=== PATIENT | female | born 1995 | race Caucasian/White ===

== ENCOUNTER 2019-06-29 12:09 | Emergency (ER) | payer OTHER, SELFPAY ==
[2019-06-29 13:19] VITALS: BP 142/96; PULSE 96; RESP 14; TEMP 37.1; O2SAT 100
[2019-06-29] MEDS: LACTATED RINGERS 1,000 ML 999 ML IV CONT (13:48)
[2019-06-29 14:07] LABS: Basophils Percent Auto 0.4 % (0.2-1.2); Eosinophils Absolute Auto 0.1 K/mm3 (0-0.3); Eosinophils Percent Auto 1.1 % (0-4.4); Hemoglobin 13.1 g/dL (12.0-15.0); Immature Granulocyte Absolute 0.01 K/mm3 (0.00-0.031); Immature Granulocyte Percent A 0.2 % (0-0.5); Lymphocytes Absolute Auto 1.82 K/mm3 (0.9-3.2); Lymphocytes Percent Auto 33.2 % (18.3-44.2); Mean Corpuscular HGB Conc 32.8 g/dl (32-36); Mean Corpuscular Hemoglobin 30.2 pg (26-34); Mean Corpuscular Volume 92.2 fl (80-100); Mean Platelet Volume 12.8 fl (7.4-10.4); Monocytes Absolute Auto 0.6 K/mm3 (0.1-0.6); Monocytes Percent Auto 10.7 % (2.6-8.5); Neutrophils Percent Auto 54.4 % (45.5-73.1); Platelet Count Result 130 k/mm3 (150-375); Red Blood Count 4.34 M/mm3 (4.2-5.4); Red Cell Distribution Width 12.7 % (11.5-14.5); White Blood Count 5.5 K/mm3 (4.5-10.0)
[2019-06-29 14:11] LABS: Add Urine Microscopic? YES; Appearance Urine Cloudy (Clear); Bacteria Urine Trace /hpf; Bilirubin Urine Negative (Negative); Blood Urine Negative (Negative); Color Urine Yellow (Yellow); Glucose Urine UA Negative (Negative); Ketones Urine Negative (Negative); Leukocyte Esterase Ur Trace LEU/UL (Negative); Mucus Urine Few /lpf; Nitrate Urine Negative (Negative); Protein Urine Negative (Negative); RBC Urine 0-2 /hpf (0-2); Specific Grav Ur 1.023 (1.001-1.035); Squamous Epithelial Cell Urine Many /hpf (Few); Urobilinogen Urine Negative mg/dL (<2.0)
[2019-06-29 14:20] LABS: Alanine Aminotransferase 22 U/L (4-35); Albumin Level 4.5 g/dL (3.5-5.1); Alkaline Phosphatase 67 U/L (38-126); Aspartate Amino Transferase 23 U/L (14-36); Bilirubin,Total 0.4 mg/dL (0.2-1.3); Blood Urea Nitrogen 11 mg/dL (7-17); Calcium 9.3 mg/dL (8.4-10.2); Carbon Dioxide 26 mmol/L (22-30); Chloride 101 mmol/L (98-107); Estimated CRCL calculation 157 ml/min; Estimated Glomerular Filt Rate > 60; Glucose 87 mg/dL (65-105); Lipase 66 U/L (23-300); Potassium 3.6 mmol/L (3.4-5.0); Sodium 137 mmol/L (137-145)
--- NOTE | 2019-06-29 14:30 | ED.NAVMDI ---
HPI - Nausea/Vomiting/Diarrhea General Chief complaint: Nausea/Vomiting/Diarrhea Stated complaint: cough, n/v/d Time Seen by Provider: 06/29/19 12:43 History of Present Illness HPI Narrative: Patient is a 24-year-old female who presents to emergency department noting that she has had some intermittent vomiting diarrhea over the course of the last week patient notes some mild discomfort in the lower abdomen also has been having some congestion rhinorrhea and productive cough patient has not taken anything for her symptoms patient is able to tolerate p.o. intake without emesis but at times becomes more nauseous on arrival patient in the room in no distress and notes she has not been seen for this complaint Related Data Allergies Allergy/AdvReac Type Severity Reaction Status Date / Time amoxicillin Allergy Intermediate Rash Verified 02/28/19 10:12 latex Allergy Unknown Unknown Verified 06/29/19 13:33 Penicillins Allergy Unknown Unknown Verified 06/29/19 13:22 Review of Systems Review of Systems: Narrative: CONSTITUTIONAL: Denies fever, chills, or sweats. EYES: Denies visual changes, redness, or discharge. ENT: Positive for rhinorrhea, congestion, sore throat, or otalgia. CARDIOVASCULAR: Denies chest pain, or edema. RESPIRATORY: Denies dyspnea. GENITOURINARY: Denies dysuria or hematuria. SKIN: Denies rash or itching. MUSCULOSKELETAL: Denies back pain, joint pain, or myalgia. NEUROLOGIC: Denies headache, dizziness, or weakness. [facility] Social History Social History (Updated 06/29/19 @ 14:35 by Jarred Contreras PA-C) Smoking status: Current every day smoker Exam Narrative: Exam Narrative: GENERAL: Well-appearing, well-nourished, and in no acute distress. HEAD: Normocephalic, atraumatic. EYES: PERRLA and EOMI. ENT: Nares clear, no rhinorrhea or epistaxis. Mucous membranes moist. Oropharynx without tonsillar hypertrophy exudate or other lesions. Bilateral TMs pearly house nonbulging NECK: Supple. No adenopathy or masses. CHEST: Clear to auscultation. No respiratory distress. No wheezes rales or rhonchi HEART: Regular rate and rhythm. No murmur heard. Normal peripheral pulses. ABDOMEN: Soft, tenderness in the lower quadrants, nondistended EXTREMITIES: Normal range of motion. No edema. SKIN: Warm, dry, no rash. NEURO: No focal deficits. Alert and oriented x3. PSYCH: Normal mood and affect. Course Course Emergency Course: Patient in the room at this time in no distress resting comfortably Vital Signs Vital signs: Vital Signs Temperature 98.8 F 06/29/19 13:19 Pulse Rate 96 06/29/19 13:19 Respiratory Rate 14 06/29/19 13:19 Blood Pressure 142/96 H 06/29/19 13:19 Pulse Oximetry 100 06/29/19 13:19 Temperature 98.8 F 06/29/19 13:19 Pulse Rate 96 06/29/19 13:19 Respiratory Rate 14 06/29/19 13:19 Blood Pressure 142/96 H 06/29/19 13:19 Pulse Oximetry 100 06/29/19 13:19 MDM - Nausea/Vomiting/Diarrhea MDM Narrative Medical decision making narrative: Patient in the room in no distress no high risk changes in the blood work or imaging will be referred to primary care with likely viral syndrome provided with reasons to return Lab Data Result diagrams: 06/29/19 13:57 06/29/19 13:57 Labs: Lab Results 06/29/19 06/29/19 06/29/19 Range/Units 13:57 13:57 13:57 WBC 5.5 (4.5-10.0) K/mm3 RBC 4.34 (4.2-5.4) M/mm3 Hgb 13.1 (12.0-15.0) g/dL Hct 40.0 (37.0-47.0) % MCV 92.2 (80-100) fl MCH 30.2 (26-34) pg MCHC 32.8 (32-36) g/dl RDW 12.7 (11.5-14.5) % Plt Count 130 L (150-375) k/mm3 MPV 12.8 H (7.4-10.4) fl Immature Gran % (Auto) 0.2 (0-0.5) % Neut % (Auto) 54.4 (45.5-73.1) % Lymph % (Auto) 33.2 (18.3-44.2) % Lee % (Auto) 10.7 H (2.6-8.5) % Eos % (Auto) 1.1 (0-4.4) % Baso % (Auto) 0.4 (0.2-1.2) % Lymph # (Auto) 1.82 (0.9-3.2) K/mm3 Lee # (Auto) 0.6 (0.1-0.6) K/mm3 Eos # (Auto)
[2019-06-29 15:08] VITALS: BP 126/87; PULSE 63; RESP 14; O2SAT 96
--- NOTE | 2019-07-06 08:16 | PC.NURSE ---
LATE ENTRY This note is being entered to document information to the patient's record. The following information was omitted on [06/29/2019], by [Blayne Jennings]. LR infused completed at 1448.
== END 2019-06-29 15:10 | disposition home or self-care (01) ==
PROVIDERS: Emergency Medicine Emergency Medical Services; Emergency Provider Emergency Medicine
DX: J06.9 Acute upper respiratory infection, unspecified (principal); R10.30 Lower abdominal pain, unspecified
CPT/HCPCS: 36415; 80053; 81001; 83690; 85025; 96360; 99283; J7120

== ENCOUNTER 2020-06-07 11:18 | Emergency (ER) | payer OTHER, SELFPAY ==
[2020-06-07 11:29] VITALS: BP 135/91; PULSE 110; RESP 16; O2SAT 100
--- NOTE | 2020-06-07 12:25 | PC.NURSE ---
Patient reports that she began having diarrhea yesterday with 3 BM since last night with stool that is soft and liquid. 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 She called her PMD (Tello) today and was told to come to the hospital and to be tested for COVID. Her only complaint in addition to the above complaint is a sore throat which began today.
--- NOTE | 2020-06-07 12:37 | ED.GENADULT ---
HPI - General Adult General Chief complaint: Unspecified Stated complaint: SORE THROAT AND DIARRHEA Time Seen by Provider: 06/07/20 12:24 Source: patient Mode of arrival: ambulatory Limitations: no limitations History of Present Illness HPI narrative: Patient is a 25-year-old female who presents with sore throat and diarrhea x1 day. Patient was more explained to PCP and was sent to ED for Covid testing. Patient denies fever. She denies any known exposure to Covid, however works in a gas station. She denies all other complaints at this time. MD complaint: Sore throat, diarrhea Related Data Home Medications Medication Instructions Recorded Confirmed cetirizine mg 06/07/20 cyclobenzaprine mg 06/07/20 drospirenone (contraceptive) 06/07/20 [Slynd] fluoxetine mg 06/07/20 multivitamin with folic acid tablet PO 06/07/20 [Tab-A-Ale] omeprazole 06/07/20 oxcarbazepine 06/07/20 prazosin 06/07/20 trazodone 06/07/20 Allergies Allergy/AdvReac Type Severity Reaction Status Date / Time amoxicillin Allergy Intermediate Rash Verified 06/07/20 12:40 latex Allergy Unknown Unknown Verified 06/07/20 12:40 Penicillins Allergy Unknown Unknown Verified 06/07/20 12:40 Review of Systems Review of Systems: Narrative: CONSTITUTIONAL: Denies fever, chills, or sweats. EYES: Denies visual changes, redness, or discharge. ENT: Reports sore throat CARDIOVASCULAR: Denies chest pain, palpitations, or edema. RESPIRATORY: Denies cough or dyspnea. GASTROINTESTINAL: Denies abdominal pain, nausea or vomiting, reports diarrhea. GENITOURINARY: Denies dysuria or hematuria. SKIN: Denies rash or itching. MUSCULOSKELETAL: Denies back pain, joint pain, or myalgia. NEUROLOGIC: Denies headache, numbness, dizziness, or weakness. PSYCHIATRIC: Denies anxiety or depression. [facility] Past Medical History Medical History Anemia Anxiety Arthritis Back pain Bipolar disorder Depression GERD (gastroesophageal reflux disease) Heart murmur PTSD (post-traumatic stress disorder) Wears hearing aid in both ears Surgical History Surgical History H/O dilation and curettage H/O: Hx of tonsillectomy Family History Family History (Updated 06/07/20 @ 13:26 by GUERRERO White) Other No significant family history Social History Social History (Updated 06/07/20 @ 13:26 by GUERRERO White) Smoking status: Current every day smoker Tobacco type: cigarettes Alcohol intake: never Substance use: never Gender identity (if verbalized by the patient): Female Exam Narrative: Exam Narrative: GENERAL: Well-appearing, well-nourished, and in no acute distress. HEAD: Normocephalic, atraumatic. EYES:No redness or drainage. ENT: Mucous membranes pink and moist. Nares clear. No rhinorrhea. TMs normal bilaterally. Throat normal. Uvula midline. NECK: AROM. Supple. No lymphadenopathy. CHEST: No respiratory distress. HEART: Regular rate and rhythm. GI: Soft, nontender without rebound, or guarding. No distention. EXTREMITIES: Normal range of motion. SKIN: Warm, dry, no rash. NEURO: No focal deficits. Alert and oriented x3. Gait steady. PSYCH: Normal affect. No signs of depression or anxiety. Course Vital Signs Vital signs: Vital Signs Pulse Rate 110 H 06/07/20 11:29 Respiratory Rate 16 06/07/20 11:29 Blood Pressure 135/91 H 06/07/20 11:29 Pulse Oximetry 100 06/07/20 11:29 Pulse Rate 110 H 06/07/20 11:29 Respiratory Rate 16 06/07/20 11:29 Blood Pressure 135/91 H 06/07/20 11:29 Pulse Oximetry 100 06/07/20 11:29 Reviewed. Patient has been instructed to follow-up with her PCP regarding her blood pressure. Medical Decision Making MDM Narrative Medical decision making narrative: Patient's rapid strep and influenza are negative. Discussed Covid testing with patient. Shabana
[2020-06-07 13:18] LABS: Add Urine Microscopic? NO; Appearance Urine Clear (Clear); Bacteria Urine Trace /hpf; Bilirubin Urine Negative (Negative); Blood Urine Negative (Negative); Color Urine Straw (Yellow); Glucose Urine UA Negative (Negative); Ketones Urine Negative (Negative); Leukocyte Esterase Ur Negative LEU/UL (Negative); Mucus Urine Rare /lpf; Nitrate Urine Negative (Negative); Protein Urine Negative (Negative); RBC Urine 0-2 /hpf (0-2); Specific Grav Ur 1.014 (1.001-1.035); Squamous Epithelial Cell Urine Occasional /hpf (Few); Urobilinogen Urine Negative mg/dL (<2.0); WBC Urine 0-3 /hpf
[2020-06-07 13:43] VITALS: BP 143/97; PULSE 100; RESP 16; O2SAT 100
[2020-06-08 20:47] LABS: SARS-CoV-2 RNA PCR Negative
== END 2020-06-07 13:45 | disposition home or self-care (01) ==
PROVIDERS: Emergency Provider Nurse Practitioner; PCP Emergency Medicine
DX: J06.9 Acute upper respiratory infection, unspecified (principal); Z20.822 Contact with and (suspected) exposure to COVID-19; F41.9 Anxiety disorder, unspecified; M19.90 Unspecified osteoarthritis, unspecified site; F31.9 Bipolar disorder, unspecified; F43.10 Post-traumatic stress disorder, unspecified; Z86.2 Personal history of diseases of the blood and blood-forming organs and certain disorders involving the immune mechanism; F17.210 Nicotine dependence, cigarettes, uncomplicated
CPT/HCPCS: 81003; 81025; 87081; 87804; 87880; 99283; C9803; U0003

== ENCOUNTER 2023-09-07 09:42 | Outpatient (CLI) | payer OTHER, SELFPAY ==
[2023-09-07 10:19] LABS: Hematocrit 38.2 % (37.0-47.0); Hemoglobin 12.3 g/dL (12.0-15.0); Mean Corpuscular HGB Conc 32.2 g/dl (32-36); Mean Corpuscular Hemoglobin 29.9 pg (26-34); Mean Corpuscular Volume 92.7 fl (80-100); Mean Platelet Volume 12.5 fl (7.4-10.4); Platelet Count Result 131 k/mm3 (150-375); Red Blood Count 4.12 M/mm3 (4.2-5.4); Red Cell Distribution Width 13.1 % (11.5-14.5); White Blood Count 7.5 K/mm3 (4.5-10.0)
[2023-09-07 10:28] LABS: Alanine Aminotransferase 19 U/L (6-35); Albumin Level 4.1 g/dL (3.5-5.1); Alkaline Phosphatase 49 U/L (38-126); Anion Gap 5 mmol/L (4-12); Aspartate Amino Transferase 22 U/L (14-36); Bilirubin,Total 0.4 mg/dL (0.2-1.3); Blood Urea Nitrogen 8 mg/dL (7-17); Calcium 8.8 mg/dL (8.4-10.2); Carbon Dioxide 24 mmol/L (22-30); Chloride 109 mmol/L (98-107); Cholesterol 149 mg/dL (0-200); Estimated Glomerular Filt Rate > 60; Glucose 92 mg/dL (65-110); HDL Direct 37 mg/dL; Potassium 3.8 mmol/L (3.4-5.0); Sodium 138 mmol/L (137-145); Triglycerides 136 mg/dL (<150)
[2023-09-07 10:39] LABS: LDL Cholesterol Direct 89 mg/dL
[2023-09-07 10:57] LABS: Thyroid Stimulating Hormone 0.921 uIU/mL (0.465-4.680)
[2023-09-08 00:59] LABS: Hemoglobin A1C 4.7 % (<5.7)
== END 2023-09-07 09:43 | disposition home or self-care (01) ==
LOC: ANHLAB 09:44
PROVIDERS: PCP Nurse Practitioner; Visit Provider Nurse Practitioner
DX: Z00.00 Encounter for general adult medical examination without abnormal findings (principal); Z68.43 Body mass index [BMI] 50.0-59.9, adult; Z79.899 Other long term (current) drug therapy
CPT/HCPCS: 36415; 80053; 80061; 83036; 84443; 85027

== ENCOUNTER 2024-02-23 11:36 | Outpatient (CLI) | payer OTHER, SELFPAY ==
[2024-02-23 12:51] LABS: Alanine Aminotransferase 43 U/L (6-35); Albumin Level 4.5 g/dL (3.5-5.1); Alkaline Phosphatase 63 U/L (38-126); Anion Gap 11 mmol/L (4-12); Aspartate Amino Transferase 43 U/L (14-36); Bilirubin,Total 0.6 mg/dL (0.2-1.3); Blood Urea Nitrogen 8 mg/dL (7-17); Calcium 9.1 mg/dL (8.4-10.2); Carbon Dioxide 23 mmol/L (22-30); Chloride 103 mmol/L (98-107); Cholesterol 166 mg/dL (0-200); Estimated Glomerular Filt Rate > 60; Glucose 92 mg/dL (65-110); HDL Direct 38 mg/dL; Potassium 3.9 mmol/L (3.4-5.0); Sodium 137 mmol/L (137-145); Triglycerides 120 mg/dL (<150)
[2024-02-23 13:01] LABS: LDL Cholesterol Direct 95 mg/dL
[2024-02-23 13:29] LABS: Hemoglobin A1C 4.9 % (<5.7)
[2024-02-23 13:37] LABS: Vitamin D 25 Hydroxy 22.6 ng/mL
== END 2024-02-23 11:37 | disposition home or self-care (01) ==
LOC: ANHLAB 11:38
PROVIDERS: PCP Nurse Practitioner; Visit Provider Nurse Practitioner
DX: E55.9 Vitamin D deficiency, unspecified (principal); Z68.43 Body mass index [BMI] 50.0-59.9, adult; Z79.899 Other long term (current) drug therapy
CPT/HCPCS: 36415; 80053; 80061; 82306; 83036

== ENCOUNTER 2024-07-18 10:21 | Outpatient (CLI) | payer OTHER, SELFPAY ==
--- NOTE | ~2024-07-18 | US_ITS ---
US abdomen limited INDICATION: Right upper quadrant pain PROCEDURE: Realtime right upper abdominal ultrasound. COMPARISON: No prior studies for comparison. FINDINGS: The pancreas is normal without focal mass or pancreatic ductal dilation. Liver echotexture is normal without focal mass or intrahepatic biliary dilatation. There is normal directional flow i n the portal vein. There are gallstones. No gallbladder wall thickening, although the bladder is not well distended. Co mmon bile duct measures 4 mm. No sonographic Benito's sign. IMPRESSION: 1: Cholelithiasis. Reviewed, dictated and finalized at location B. EEPER IMPRESSION: 1: Cholelithiasis.
--- OUTSIDE RECORDS SUMMARY | 2024-07-18 11:16 | XMS_ITS | Data Portability ---
Author Organization [facility] [place] Address [address] [place] [address] Care Team Providers Care Embroidery Supervisor Name Role Phone LEANDROYOAV Primary Care Provider Assessment Encounter Date Assessment Date Assessment LastModified by Organization Details LastModified Time 01/03/2023 01/03/2023 Annual gynecological exam performed. Patient will come back in a year unless there are new symptoms. [email or web address] Not available 01/03/2023 14:57:09 Plan of Treatment Reminders Order Date Submit Date Provider Last Modified By Organization Details Last Modified Time Details Appointments None recorded. Lab hbcab (hepatitis B core Ab) igm, serum 2022 023 [facility] (Lab), [address], [place], [address], 3 01:27:29 HBsAg (hepatitis B surface Ag), serum 2022 023 [facility] (Lab), [address], [place], [address], 3 01:27:28 hepatitis C virus Ab, serum 2022 023 [facility] (Lab), [address] [place], [address], 3 01:27:27 unlisted lab - HIV 1/2 antigen/ant ibody, reflex confirmatio n 2022 023 [facility] (Lab), [address], [place], [address], 3 01:27:27 RPR (rapid plasma reagin), serum 2022 023 [facility] (Lab), [address] [facility], [place], [address], 3 01:27:28 Referral None recorded. Procedures None recorded. Surgeries None recorded. Imaging None recorded. Medication Orders None recorded. Patient TargetsNo targets recorded. Patient InstructionsNo instructions recorded. Reason for Referral None Reported. Results Created Date Observation Date Name Description Value Unit Range Abnormal Flag Note LastModifiedBy Organization Detail LastModifiedTime 01/04/20 23 01/03/2023 IMAGE GUIDE D PAP, REFLE X HPV IF ASCUS ONLY image guided Pap, reflex HPV ASCUS only SEE RESULT S BELOW CASE REPOR T: Cytol ogy Gynec ologi asmita Repor t Case: [id number] Autho brissa jackson Provi chuy: Sonia Sanon, SERGE Colle cted: 01/03 1513 Order ing Locat ion: [place] [facility] Recei eliza: 01/04 0905 First Scree n: Stacia Herrmann ret, CT Rescr een: Melba Ortega, CT Speci men: Scree blanco Pap - Image d, Cervi x STATE MENT OF ADEQU ACY: Satis facto ry for evalu ation Trans forma tion zone compo nent absen t The absen ce of an endoc ervic al compo nent was confi rmed by an addit ional scree ner. FINAL DIAGN OSIS: Negat ariel for Intra epith elial Lesio n or Malig valeriano (NIL) . Shift in daniela sugge stive of bacte rial vagin osis. Elect winsome rene billy d by Melba Ortega, CT on 023 at 9:27 AM ----- ----- ----- ----- ----- ----- ----- ----- ----- ----- ----- ----- ----- ----- ----- ----- ----- ---- COMME NT: This speci men was revie wed by a Cytot echno logis t and/o r Patho logis t (as indic ated in this repor t) after evalu ation using the Thinp rep Imagi ng Syste m. CLINI AMSITA INFOR MATIO N: Menst rual Statu s: LMP (if appli cable ): Clini asmita Histo ry/Pr eviou s Pap: Type of Neopl thang (if appli cable ): Signi fican t Clini asmita Findi ngs: Other Histo ry: Hormo alfredo (if appli cable ): PAP EDUCA SUSY L NOTE: The Pap Test is a scree blanco test with an inher ent false negat ariel rate. Liqui d-bas ed sampl ing may decre ase, but will not elimi blossom, false negat ariel resul ts. A negat ariel resul t does not precl ude the prese nce and/o r devel opmen t of disea se, since the prese nce of abnor mal cells in the sampl e depen ds on the locat ion of the lesio n and sampl ing techn ique. Marybeth nued regul ar scree blanco is the best metho d of cance r preve ntion . If repor zachary cytol ogic findi ng do not corre late with physi asmita and/o r histo rical findi ngs, furth er inves tigat ion is recom shannon d, as clini reba garnett nted. Not Available [facility] (Lab) [address], [place], [address], 01/05/2023 10:32:06 01/04/20 23 01/03/2023 TRICH OMONA S VAGIN DORI (RRNA ) trichomonas vaginalis ribosomal RNA (rrna) Negati ve negati ve Not Available [facility] (Lab) [address], [place], [address], 01/05/2023 10:32:06 01/04/20 23 01/03/2023 CT/GC (CHAN) , THINP REP VIAL chlamydia trachomatis, PCR Negati ve negati ve Not Available [facility] (Lab) [address] [facility], [place], [address], 01/05/2023 10:32:07 01/04/20 23 01/03/2023 CT/GC (CHAN) , THINP REP VIAL neisseria gonorrhoeae, PCR Negati ve negati ve Not Available [facility] (Lab) [address], [place], [address], 01/05/2023 10:32:07 01/04/20 23 01/03/2023 HEPAT ITIS C ANTIB MARK SCREE N, REFLE X TO CONFI RMATI ON hepatitis C antibody Non-re active non-re active Antib odies to HCV Not Detec zachary, does not exclu de the possi bilit y of expos ure to HCV. Not Available [facility] (Lab) [address], [place], [address], 01/06/2023 01:27:27 01/04/20 23 01/03/2023 HIV 1/2 ANTIG EN/AN TIBOD Y, REFLE X CONFI RMATI ON HIV antigen/anti body Nonrea ctive nonrea ctive HIV-1 antig en and HIV-1 /HIV- 2 antib odies were not detec zachary. No labor atory evide nce of HIV infec tion. Not Available [facility] (Lab) [address] [facility], [place], [address], 01/06/2023 01:27:27 01/04/2001/03/2023 HEPAT ITIS B SURFA CE ANTIG EN hepatitis B surface antigen Non-re active non-re active This assay was perfo rmed using [employer] ratio n reage nts and test kits. Value s obtai gurinder with other assay metho ds or kits canno t be used inter gu eably . Not Available [facility] (Lab) [address], [place], [address], 01/06/2023 01:27:28 01/04/20 23 01/03/2023 RPR SCREE N/REF OTILIA TITER /FTA RPR screen Nonrea ctive nonrea ctive Not Available [facility] (Lab) [address] [facility], [place], [address], 01/06/2023 01:27:28 01/04/20 23 01/03/2023 HEPAT ITIS B CORE, IGM hepatitis B core IgM antibody Negati ve negati ve Not Available [facility] (Lab) [address] [facility], [place], [address], 01/06/2023 01:27:29 Result Notes None recorded. Procedures Surgical History Date Name Laterality Status Provider Name and Address Organization Details Recorded Time 6 Date of Last Pap Smear completed [facility] 01/03/2023 14:59:11 tonsilectomy/ adenoids completed [facility] 01/03/2023 14:57:58 Caesarean Section completed [facility] 01/03/2023 14:57:58 Imaging Results None recorded. Procedure Notes None recorded. Medical Equipment None Reported. Allergies Allergen ID Allergen Name Allergen Category Reaction Reaction Severity Criticality Documentation Date Start Date Code Code System Note Provider Name and Address Organization Details Recorded Time 49121 amoxicill in medicatio n hives mild Not available 01/03/2023 723 RxNorm Jane Vasquez r null, [facility] 3 14:57:39 99834 latex environme nt,medica tion Not available Not available Not available 01/03/2023 58829 91 RxNorm Jane Vasquez r [facility], [facility] 3 15:02:00 52299 pineapple extract food Not available Not available Not available 01/03/2023 26699 74 RxNorm Jane Vasquez r null, [facility] 3 15:02:06 44058 coconut extract food,medi cation Not available Not available Not available 01/03/2023 35982 48 RxNorm Jane Christina garcía [place] - [facility] 3 15:02:13 Medications Name Sig Start Date Stop Date Status Note LastModified by Organization Details LastModified Time fluoxetine 40 mg capsule TAKE 1 CAPSULE BY MOUTH ONCE DAILY 01/03 completed Not Available Not Available Not Available cyclobenzap rine 10 mg tablet TAKE 1 TABLET BY MOUTH THREE TIMES DAILY NEEDED FOR MUSCLE SPASM active Not Available Not Available No t Available metformin 500 mg tablet TAKE 1 TABLET BY MOUTH TWICE DAILY 01/03 completed Not Available Not Available Not Available cetirizine 10 mg tablet TAKE 1 TABLET BY MOUTH ONCE DAILY 01/03 completed Not Available Not Available Not Available ibuprofen 800 mg tablet TAKE 1 TABLET BY MOUTH THREE TIMES DAILY NEEDED FOR PAIN active Not Available Not Available No t Available meloxicam 15 mg tablet TAKE 1 TABLET BY MOUTH ONCE DAILY 01/03 completed Not Available Not Available Not Available rizatriptan 10 mg tablet TAKE 1 TABLET BY MOUTH AT ONSET OF HEADACHE IF NO RELIEF MAY REPEAT ONE TAB AFTER AT LEAST 2 HOURS, MAX OF 3 TABS PER 24 HOURS 01/03 completed Not Available Not Available Not Available topiramate 25 mg tablet TAKE 1 TABLET BY MOUTH TWICE DAILY active Not Available Not Available No t Available ketorolac 10 mg tablet TAKE 1 TABLET BY MOUTH EVERY 8 HOURS NEEDED FOR HEADACHE 01/03 completed Not Available Not Available Not Available trazodone 100 mg tablet TAKE 2 TABLETS BY MOUTH NIGHTLY 01/03 completed Not Available Not Available Not Available baclofen 10 mg tablet TAKE 1 TABLET BY MOUTH TWICE DAILY NEEDED 01/03 completed Not Available Not Available Not Available benzonatate 100 mg capsule TAKE 1 CAPSULE BY MOUTH EVERY 6 TO 8 HOURS 01/03 completed Not Available Not Available Not Available erythromyci n 5 mg/gram (0.5 %) eye ointment INSTILL OINTMENT EVERY 8 HOURS INTO AFFECTED EYE 01/03 completed Not Available Not Available Not Available docusate sodium 100 mg capsule TAKE 1 CAPSULE BY MOUTH ONCE DAILY 01/03 completed Not Available Not Available Not Available oxcarbazepi ne 600 mg tablet TAKE 1 TABLET BY MOUTH ONCE DAILY 01/03 completed Not Available Not Available Not Available ergocalcife rol (vitamin D2) 1,250 mcg (50,000 unit) capsule TAKE 1 CAPSULE BY MOUTH ONCE A WEEK 01/03 completed Not Available Not Available Not Available albuterol sulfate HFA 90 mcg/actuati on aerosol inhaler INHALE 2 PUFFS BY MOUTH 4 TIMES DAILY NEEDED FOR SHORTNESS OF BREATH active Not Available Not Available No t Available fluoxetine 20 mg capsule TAKE 2 CAPSULES BY MOUTH ONCE DAILY 01/03 completed Not Available Not Available Not Available fluticasone propionate 50 mcg/actuati on nasal spray,suspe nsion USE 2 SPRAY(S) IN EACH NOSTRIL ONCE DAILY 01/03 completed Not Available Not Available Not Available prazosin 2 mg capsule TAKE 1 CAPSULE BY MOUTH ONCE DAILY 01/03 completed Not Available Not Available Not Available nitrofurant oin monohydrate /macrocryst als 100 mg capsule TAKE 1 CAPSULE BY MOUTH EVERY 12 HOURS FOR 10 DAYS 01/03 completed Not Available Not Available Not Available Vitals Date Recorded Body height Body mass index (BMI) Body weight Systolic blood pressure Diastolic blood pressure Provider Name and Address Organization Details Last Updated DateTime 01/03/2023 152.4 cm 56.1 kg/m2 381821.0 1 g 117 mm[Hg] 80 mm[Hg] Jane Earl [facility] 3 14:57:36 Social History Question Answer Notes LastModified by Organizat ion Details LastModified Time What Is Your Level Of Alcohol Consumption? Moderate Information not available 01/03/2023 How Many Years Have You Consumed Alcohol? 12 Information not available 01/03/2023 Are You Blind Or Do You Have Difficulty Seeing? No Information n ot available 01/03/2023 What Is Your Level Of Caffeine Consumption? Heavy Information not available 01/03/2023 How Much Tobacco Do You Chew? None Information not available 01/03/2023 In The 14 Days Before Symptom Onset, Have You Had Close Contact With A Laboratory-confirm ed COVID-19 While That Case Was Ill? No Information n ot available 01/03/2023 In The 14 Days Before Symptom Onset, Have You Had Close Contact With A Person Who Is Under Investigation For COVID-19 While That Person Was Ill? No Information not available 01/03/2023 Have You Been To An Area Known To Be High Risk For COVID-19? No Information not available 01/03/2023 Are You Deaf Or Do You Have Serious Difficulty Hearing? Yes Information not available 01/03/2023 What Type Of Diet Are You Following? REGULAR Information n ot available 01/03/2023 What Is The Highest Grade Or Level Of School You Have Completed Or The Highest Degree You Have Received? 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 No Information not available 01/03/2023 Do You Use Protection During Sex? No Information not available 01/03/2023 Do You Use Your Seat Belt Or Car Seat Routinely? Yes Information not available 01/03/2023 Do You Have Smoke And Carbon Monoxide Detectors In Your Home? Yes Information not available 01/03/2023 How Much Tobacco Do You Smoke? No Information not available 01/03/2023 Do You Feel Stressed (tense, Restless, Nervous, Or Anxious, Or Unable To Sleep At Night)? [id number] Information not available 01/03/2023 Do You Use Any Illicit Or Recreational Drugs? Yes Information not available 01/03/2023 Do You Use Sunscreen Routinely? No Information not available 01/03/2023 Have You Used IV Drugs? No Information not available 01/03/2023 Sex: Unknown Functional Status Question Answer Note LastModified by Organizat ion Details LastModified Time Do you have difficulty walking or climbing stairs? No Information not available 01/03/2023 Are you able to walk? YESWOREST Information not available 01/03/2023 Are you able to care for yourself? Yes Information not available 01/03/2023 Do you have difficulty dressing or bathing? No Information not available 01/03/2023 What is your exercise level? Occasional Information not available 01/03/2023 Mental Status None recorded. Family History Relationship Description Onset Age of this Age Resolved Age Notes LastModified by Organization Details LastModified Time Paternal Grandmother Multiple sclerosis [email or web address] Not available 12/06 14:57:42 Mother Anemia vschroedter Not availabl e 01/03/2023 14:57:42 Mother Depressive disorder vschroedter Not available 12/06 14:57:42 Mother Hypertensive disorder vschroedter Not available 12/06 14:57:42 Sister Anxiety disorder vschroedter Not available 12/06 14:57:42 Sister Depressive disorder vschroedter Not available 12/06 14:57:42 Father Multiple sclerosis vschroedter Not available 12/06 14:57:42 Medical History Condition Response Allergies (Food, seasonal, environmental ) N Other N Breast Cancer N Drug/Latex Allergies/Reactions N Blood Transfusion N Dermatologic Disorders N Lung Disease N Defects or Inherited Disease N Breast Problem N Gestational Diabetes N Hematologic disorders N Anesthesia Complications N History of STI N Deep Vein Thrombosis N Polycystic ovary syndrome N Anxiety Disorder N Autoimmune disease N Arthritis N Infertility N Polyps N Acid Reflux (GERD) N History of abnormal pap N Cancer N Stroke N Varicosities N Neurologic/Epilepsy N Endometriosis N High Cholesterol N Headaches Y Fibromyalgia N Kidney Disease N Heart Problems N Kidney or Bladder Problems N Thyroid Problems N GI Problems N Eating Disorder N Anemia N Art (IVF or FET) N Psychiatric Illness N Ovarian Cancer N Diabetes N Pulmonary (TB, Asthma) N Hepatitis/Liver Disease N No Past Medical History N Eczema N Urinary Tract Infection N Abuse/Domestic Violence N Asthma N Trauma/Violence N Depression/ depression N Heart Disease N Pre-Eclampsia N Hypertension N Osteoporosis N Thrombophilias N Gynecological History Statement/Question Response Flow Heavy Date of LMP 12/14/2022 On BCP's at Conception? Y N Was last menstrual period normal Y STIs/STDs Y HPV Vaccine Y Duration of Flow (days) 4 Current Control Method None Age at First Child 19 Sexually Active? Y Menses Monthly Y Age of first menstrual cycle 12 Date of Last Pap Smear 06/06/2015 Sexual Problems? N Desired Control Method Seeking Pre gnancy LMP Definite N Obstetrics History GPAL:G 5 P 0 0 4 1 Type Value Spontaneous 4 Living 1 Total 5 Past Encounters Encounter ID Performer Location Encounter Start Date Encounter Closed Date Diagnosis/Indication Diagnosis SNOMED-CT Code Diagnosis ICD10 Code Diagnosis Note [id number] [facility] [place] [address] [address] 01/03/2023 14:13:33 01/03/2023 15:25:17 Venereal disease screening 170329578 Z11.3 Sexually t ransmitted infectious disease 9797603 A64 Gynecologi c examination 57170452 Z01.419 Take Calcium with Vitamin D 1200mg daily if not receiving in daily diet. It is strongly advised to have an annual flu shot and up can obtain at most pharmacies . If you have not had a TDap shot in the last 10 years you should obtain one as well. Discussed with patient & provided with informatio n regarding Gardisil vaccine to prevent the 4 strains for HPV that cause cervical cancer if under age 26. Encourage safe sexual practices, to use condoms and limit partners if not already in a monogamous relationsh ip. Do monthly self breast exams. Have mammogram yearly or every other year depending on family history. BRCA testing is now available for patients with strong genetic history of female cancer. If interested contact the office. Engage in daily exercise of low impact aerobic exercise 45-60 minutes 4-5 times weekly. Avoid tobacco and illicit drugs as well as using moderation with alcohol intake less than 1-2 8 oz beverages daily. This lifestyle behavior pattern will lead to less health conditions and longer life span. If BMI greater than 25 weight watchers or dietary consult advised. Patient received above instructio ns, and questions have been answered. If you have any questions please call or respond to this email. Patient was made aware of the patient portal and may obtain a paper copy of today's plan if desired. [facility] - declinedmo st pap 2016 - normalpap updated todaySTI testing added to papBlood STI panel orderedUTD with PCPRTC in 1 year or sooner if needed Health Concerns Section Related Observation LastModified by Organization Detai ls LastModified Time None Recorded Concern Status LastModified by Organization Details LastModified Time None Recorded Advance Directives Directive None Recorded Payers Encounter Date Sequence Insurance Name Policy Number Policy Copeland Covered Member ID Copeland Member ID Guarantor Name 01/03/2023 1 [facility] - DOS ON OR AFTER 20 (MEDICAID REPLACEMENT - HMO) Piper Rabago [id number] Piper Rabago Notes Date Note Type Note Provider Name and Address Organization Details Recorded Time 01/03/2023 text/html Annual GYNReport ed bypatient.Menstrua l cycle:Normal menses Urinary symptoms:No hematuria; No incontinence Vulva:No genital lesion Vagina:Normal vaginal discharge Breast:No breast pain; No breast lump; No nipple discharge Current Contraception:Yannick h control not practiced Sexual complaints:No sexual complaints; No pain during intercourse; Normal libido Menopausal Symptoms:No menopausal symptoms; Normal vaginal lubrication Psychological symptoms:No depression; No anxiety; No PMDD Preventive measures:Encourage self breast examination; Encourage regular exercise; Encourage no tobacco use; Encourage regular mammograms starting age 40 [facility] [place] [address], [place], [address], [facility] 01/03/2023 15:25:26 OBGyn Episode Ob Episode Information Episode Created Date Number of Fetuses Patient Bloodtype Patient rh Status Prepregnancy Weight lbs Domestic Partner Domestic Partner Phone Father Name First Dyer Status 01/04/20 23 1 CLOSED Fetus Data First Name Last Name Admitted to NICU Weight (g) Sex Living Outcome Pediatric Complications Fetus ID Race Codes Race Delivery Type [id number] F [id number] Primary Chad Calculation Initial Chad Date Initial Exam Date Initial Exam Provider Initial Ultrasound Date Last Menstrual Period Date Ultra Sound Weeks Gestation 0 Eighteen To Twenty Week Chad Update Ultra Sound Date Fundal Height At Umbil Quickening Date Ultra Sound Latest Weeks Gestation Final Chad Confirmed By Final Chad Confirmed Date Final Chad Date Ultra Sound Latest Days Gestation 0 0 Menstrual History Last Menstrual Date Menses Monthly On Bcp Conception Prior Menses Frequency Hcg Plus Date Menarche Onset Age Delivery Information Delivery Date Delivery Type Labor Anesthesia Weeks Gestation Incision Type Labor Labor Length Hrs Delivered By Post Complications Tubal Sterilization Discharge Date Comments 6 Discharge Information Feeding Method Contraceptive Method Maternal HG B and HCT Levels
== END 2024-07-18 10:22 | disposition home or self-care (01) ==
PROVIDERS: PCP Nurse Practitioner; Visit Provider Nurse Practitioner
DX: K80.20 Calculus of gallbladder without cholecystitis without obstruction (principal)
CPT/HCPCS: 76705

== ENCOUNTER 2024-07-30 08:49 | Outpatient (CLI) | payer OTHER, SELFPAY ==
[2024-07-30 09:02] LABS: Basophils Percent Auto 0.3 % (0.2-1.2); Eosinophils Absolute Auto 0.1 K/mm3 (0-0.3); Eosinophils Percent Auto 1.3 % (0-4.4); Hematocrit 35.9 % (37.0-47.0); Hemoglobin 11.7 g/dL (12.0-15.0); Immature Granulocyte Absolute 0.01 K/mm3 (0.00-0.031); Immature Granulocyte Percent A 0.2 % (0-0.5); Lymphocytes Absolute Auto 2.34 K/mm3 (0.9-3.2); Lymphocytes Percent Auto 37.8 % (18.3-44.2); Mean Corpuscular HGB Conc 32.6 g/dl (32-36); Mean Corpuscular Hemoglobin 30.3 pg (26-34); Monocytes Absolute Auto 0.5 K/mm3 (0.1-0.6); Monocytes Percent Auto 8.7 % (2.6-8.5); Neutrophils Absolute Auto 3.2 K/mm3 (1.3-6.7); Neutrophils Percent Auto 51.7 % (45.5-73.1); Platelet Count Result 128 k/mm3 (150-375); Red Blood Count 3.86 M/mm3 (4.2-5.4); Red Cell Distribution Width 12.9 % (11.5-14.5); White Blood Count 6.2 K/mm3 (4.5-10.0)
--- OUTSIDE RECORDS SUMMARY | 2024-07-30 09:23 | XMS_ITS | Data Portability ---
Author Organization [facility] [place] Address [address] [place] [address] Care Team Providers Care Public Information Director Name Role Phone LEANDROYOAV Primary Care Provider [...] B core Ab) igm, serum 2022 023 [facility] (Lab), [address], [place], [address], 3 01:27:29 HBsAg (hepatitis B surface Ag), serum 2022 023 [facility] (Lab), [address], [place], [address], 3 01:27:28 hepatitis C virus Ab, serum 2022 023 [facility] (Lab), [address] [place], [address], 3 01:27:27 unlisted lab - HIV 1/2 antigen/ant ibody, reflex confirmatio n 2022 023 [facility] (Lab), [address], [place], [address], 3 01:27:27 RPR (rapid plasma reagin), serum 2022 023 [facility] (Lab), [address], [place], [address], 3 01:27:28 Referral None recorded. Procedures None [...] Thinp rep Imagi ng Syste m. CLINI ASMITA INFOR MATIO N: Menst rual Statu s: [...] clini reba garnett nted. Not Available [facility] (Lab) [address], [place], [address], 01/05/2023 10:32:06 01/04/20 23 01/03/2023 TRICH OMONA S VAGIN DORI (RRNA ) trichomonas vaginalis ribosomal RNA (rrna) Negati ve negati ve Not Available [facility] (Lab) [address], [place], [address], 01/05/2023 10:32:06 01/04/20 23 01/03/2023 CT/GC (CHAN) , THINP REP VIAL chlamydia trachomatis, PCR Negati ve negati ve Not Available [facility] (Lab) [address], [place], [address], 01/05/2023 10:32:07 01/04/20 23 01/03/2023 CT/GC (CHAN) , THINP REP VIAL neisseria gonorrhoeae, PCR Negati ve negati ve Not Available [facility] (Lab) [address], [place], [address], 01/05/2023 10:32:07 01/04/20 23 01/03/2023 HEPAT ITIS C ANTIB MARK SCREE N, REFLE X TO CONFI RMATI ON hepatitis C antibody Non-re active non-re active Antib odies to HCV Not Detec zachary, does not exclu de the possi bilit y of expos ure to HCV. Not Available [facility] (Lab) [address], [place], [address], 01/06/2023 01:27:27 01/04/20 23 01/03/2023 HIV 1/2 ANTIG EN/AN TIBOD Y, REFLE X CONFI RMATI ON HIV antigen/anti body Nonrea ctive nonrea ctive HIV-1 antig en and HIV-1 /HIV- 2 antib odies were not detec zachary. No labor atory evide nce of HIV infec tion. Not Available [facility] (Lab) [address], [place], [address], 01/06/2023 01:27:27 01/04/2001/03/2023 HEPAT ITIS B SURFA CE ANTIG EN hepatitis B surface antigen Non-re active non-re active This assay was perfo rmed using [employer] n reage nts and test kits. Value s obtai gurinder with other assay metho ds or kits canno t be used inter gu eably . Not Available [facility] (Lab) [address], [place], [address], 01/06/2023 01:27:28 01/04/20 23 01/03/2023 RPR SCREE N/REF OTILIA TITER /FTA RPR screen Nonrea ctive nonrea ctive Not Available [facility] (Lab) [address], [place], [address], 01/06/2023 01:27:28 01/04/20 23 01/03/2023 HEPAT ITIS B CORE, IGM hepatitis B core IgM antibody Negati ve negati ve Not Available [facility] (Lab) [address], [place], [address], 01/06/2023 01:27:29 Result Notes None recorded. Procedures Surgical History Date Name Laterality Status Provider Name and Address Organization Details Recorded Time 6 Date of Last Pap Smear completed [facility] 01/03/2023 14:59:11 tonsilectomy/ adenoids completed [facility] 01/03/2023 14:57:58 Caesarean Section completed [facility] 01/03/2023 14:57:58 Imaging Results None recorded. Procedure Notes None recorded. Medical Equipment None Reported. Allergies Allergen ID Allergen Name Allergen Category Reaction Reaction Severity Criticality Documentation Date Start Date Code Code System Note Provider Name and Address Organization Details Recorded Time 22934 amoxicill in medicatio n hives mild Not available 01/03/2023 723 RxNorm Jane Vasquez r null, [facility] 3 14:57:39 59881 latex environme nt,medica tion Not available Not available Not available 01/03/2023 46964 91 RxNorm Jane Vasquez r [facility], [facility] 3 15:02:00 47209 pineapple extract food Not available Not available Not available 01/03/2023 17226 74 RxNorm Jane Vasquez r null, [facility] 3 15:02:06 93404 coconut extract food,medi cation Not available Not available Not available 01/03/2023 98960 48 RxNorm Jane Christina garcía [place] - [facility] 3 15:02:13 Medications Name Sig Start [...] Updated DateTime 01/03/2023 152.4 cm 56.1 kg/m2 525803.0 1 g 117 mm[Hg] 80 mm[Hg] Jane Earl [facility] 3 14:57:36 Social History Question Answer [...] Or The Highest Degree You Have Received? 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 [id number] Information not available 01/03/2023 Do You Use [...] (Food, seasonal, environmental ) N Other N Blood Transfusion N Drug/Latex Allergies/Reactions N Breast Cancer N Dermatologic Disorders N Lung Disease N [...] SNOMED-CT Code Diagnosis ICD10 Code Diagnosis Note [id number] CL[facility] [place] [address] [address] 01/03/2023 14:13:33 01/03/2023 15:25:17 Venereal disease screening 228827730 Z11.3 Sexually t ransmitted infectious disease 4323961 A64 Gynecologi c examination 51059187 Z01.419 Take Calcium with Vitamin D 1200mg [...] of today's plan if desired. WWEBC - declinedtn st pap 2016 - normalpap updated todaySTI [...] Copeland Member ID Guarantor Name 01/03/2023 1 [facility] - DOS ON OR AFTER 20 (MEDICAID REPLACEMENT - HMO) Piper Rabago [id number] Piper Rabago Notes Date Note Type Note [...] age 38 CL[facility]ENCE [place] [address], [place], [address], [facility] 01/03/2023 15:25:26 OBGyn Episode Ob Episode Information Episode Created Date Number of Fetuses Patient Bloodtype Patient rh Status Prepregnancy Weight lbs Domestic Partner Domestic Partner Phone Father Name Line Maintenance Status 01/04/20 23 1 CLOSED Fetus Data First Name Last Name Admitted to NICU Weight (g) Sex Living Outcome Pediatric Complications Fetus ID Race Codes Race Delivery Type 3742.13 4 F [id number] Primary Chad Calculation Initial Chad Date Initial [...]
[2024-07-30 09:57] LABS: Potassium 4.1 mmol/L (3.4-5.0)
[2024-07-30 10:01] LABS: Alanine Aminotransferase 20 U/L (6-35); Alkaline Phosphatase 54 U/L (38-126); Anion Gap 8 mmol/L (4-12); Aspartate Amino Transferase 22 U/L (14-36); Bilirubin,Total 0.4 mg/dL (0.2-1.3); Blood Urea Nitrogen 11 mg/dL (7-17); Calcium 8.8 mg/dL (8.4-10.2); Carbon Dioxide 24 mmol/L (22-30); Chloride 106 mmol/L (98-107); Estimated Glomerular Filt Rate > 60; Glucose 87 mg/dL (65-110); Sodium 138 mmol/L (137-145)
== END 2024-07-30 08:50 | disposition home or self-care (01) ==
LOC: ANHLAB 08:51
PROVIDERS: PCP Nurse Practitioner; Visit Provider Surgery
DX: K80.10 Calculus of gallbladder with chronic cholecystitis without obstruction (principal)
CPT/HCPCS: 36415; 80048; 80076; 85025; 86850; 86900; 86901

== ENCOUNTER 2024-08-01 00:12 | Day surgery (SDC) | payer OTHER, SELFPAY ==
[2024-07-30 13:48] VITALS: BMI 51.0
--- NOTE | 2024-07-30 13:50 | PC.NURSE ---
Report to the Outpatient Waiting Room, entrance under the green pavilion located off [facility], at time _0600_ on date _[id number]_. Planned Procedure Time: _0730_.? Time changes happen often and if your time is changed the preop area will call you the afternoon before. - You and your visitor will be asked to self-screen and do not enter if you have any COVID symptoms. Please call surgeon if you need to reschedule. - A mask is optional within the hospital at this time. Patients may have clear liquids (water, carbonated beverages, clear teas, apple juice) until 3 hours prior to surgery with a maximum of 20 ounces. - No food from midnight until time of surgery and no smoking, or chewing tobacco (or any form of nicotine). No chewing gum, candy or mints. Take only the following medications with a SIP of water on the morning of surgery: ___Flonase and if needed Albuterol____ DO NOT STOP ANY OF YOUR OTHER PRESCRIPTION MEDICATIONS PRIOR TO SURGERY EXCEPT THE FOLLOWING Hold all vitamins and supplements for 3 days per anesthesiologist. Medications to discontinue per physician __Patient will use Acetaminophen instead of Ibuprofen until after surgery. Date to take last dose Please no make-up, nail austrian, hairspray, perfume, deodorant, or body powder the day of surgery.? No jewelry (including any body piercings) or valuables the day of surgery, leave them at home.? Please take a shower or bath the night before, or the morning of, surgery with an antibacterial soap.? Wear comfortable, loose fitting clothing. - Jewelry must be removed prior to entering the operating room.? Rings and piercings that are not removed may be cut off. - The hospital will not accept responsibility for valuables.? - Please leave all valuables, including medications, at home the day of surgery. If you are going home after surgery, a licensed route salesman and driver must drive you home.? - NO public transportation without another adult if you receive anesthesia. - We recommend that an adult stay with you for 24 hours following discharge. - We also recommend that you do not drive, make important decision, drink alcoholic beverages, or take any drugs that were not prescribed by your health care provider for at least 24 hours after your discharge time. Follow any additional instructions given to you from your surgeon. Telephone instructions given to _Stacy__and asked if any additional questions and then verbalized understanding. Patient advised to call surgeon office or pre surgery nurse liaison [phone] if any additional questions.
[2024-08-01] VITALS (8 sets, daily range): BP systolic 102–132; BP diastolic 62–82; PULSE 58–76; RESP 14–22; TEMP 36.2–36.8; O2SAT 98–100; BMI 49.7
--- OUTSIDE RECORDS SUMMARY | 2024-08-01 00:15 | XMS_ITS | Data Portability ---
Author Organization [facility] [place] Address [address] [place] [address] Care Team Providers Care Steno Typist Name Role Phone LEANDROYOAV Primary Care Provider [phone] Assessment Encounter Date Assessment Date Assessment LastModified [...] B core Ab) igm, serum 2022 023 [facility] (Lab), [address], [place], [address], 3 01:27:29 HBsAg (hepatitis B surface Ag), serum 2022 023 [facility] (Lab), [address], [place], [address], 3 01:27:28 hepatitis C virus Ab, serum 2022 023 [facility] (Lab), [address] [place], [address], 3 01:27:27 unlisted lab - HIV 1/2 antigen/ant ibody, reflex confirmatio n 2022 023 [facility] (Lab), [address], [place], [address], 3 01:27:27 RPR (rapid plasma reagin), serum 2022 023 [facility] (Lab), [address], [place], [address], 3 01:27:28 Referral None recorded. Procedures None [...] as clini reba garnett nted. Not Available [facility] (Lab) [address], [place], [address], 01/05/2023 10:32:06 01/04/20 23 01/03/2023 TRICH OMONA S VAGIN DORI (RRNA ) trichomonas vaginalis ribosomal RNA (rrna) Negati ve negati ve Not Available [facility] (Lab) [address], [place], [address], 01/05/2023 10:32:06 01/04/20 23 01/03/2023 CT/GC (CHAN) , THINP REP VIAL chlamydia trachomatis, PCR Negati ve negati ve Not Available [facility] (Lab) [address], [place], [address], 01/05/2023 10:32:07 01/04/20 23 01/03/2023 CT/GC (CHAN) , THINP REP VIAL neisseria gonorrhoeae, PCR Negati ve negati ve Not Available [facility] (Lab) [address], [place], [address], 01/05/2023 10:32:07 01/04/20 23 01/03/2023 HEPAT ITIS C ANTIB MARK SCREE N, REFLE X TO CONFI RMATI ON hepatitis C antibody Non-re active non-re active Antib odies to HCV Not Detec zachary, does not exclu de the possi bilit y of expos ure to HCV. Not Available [facility] (Lab) [address], [place], [address], 01/06/2023 01:27:27 01/04/20 23 01/03/2023 HIV 1/2 ANTIG EN/AN TIBOD Y, REFLE X CONFI RMATI ON HIV antigen/anti body Nonrea ctive nonrea ctive HIV-1 antig en and HIV-1 /HIV- 2 antib odies were not detec zachary. No labor atory evide nce of HIV infec tion. Not Available [facility] (Lab) [address], [place], [address], 01/06/2023 01:27:27 01/04/2001/03/2023 HEPAT ITIS B SURFA CE ANTIG EN hepatitis B surface antigen Non-re active non-re active This assay was perfo rmed using [employer] reage nts and test kits. Value s obtai gurinder with other assay metho ds or kits canno t be used inter gu eably . Not Available [facility] (Lab) [address], [place], [address], 01/06/2023 01:27:28 01/04/20 23 01/03/2023 RPR SCREE N/REF OTILIA TITER /FTA RPR screen Nonrea ctive nonrea ctive Not Available [facility] (Lab) [address], [place], [address], 01/06/2023 01:27:28 01/04/20 23 01/03/2023 HEPAT ITIS B CORE, IGM hepatitis B core IgM antibody Negati ve negati ve Not Available [facility] (Lab) [address], [place], [address], 01/06/2023 01:27:29 Result Notes None recorded. Procedures Surgical History Date Name Laterality Status Provider Name and Address Organization Details Recorded Time 6 Date of Last Pap Smear completed [facility] 01/03/2023 14:59:11 tonsilectomy/ adenoids completed [facility] 01/03/2023 14:57:58 Caesarean Section completed [facility] 01/03/2023 14:57:58 Imaging Results None recorded. Procedure Notes None recorded. Medical Equipment None Reported. Allergies Allergen ID Allergen Name Allergen Category Reaction Reaction Severity Criticality Documentation Date Start Date Code Code System Note Provider Name and Address Organization Details Recorded Time 84036 amoxicill in medicatio n hives mild Not available 01/03/2023 723 RxNorm Jane Vasquez r null, [facility] 3 14:57:39 72636 latex environme nt,medica tion Not available Not available Not available 01/03/2023 44920 91 RxNorm Jane Vasquez r [facility], [facility] 3 15:02:00 07585 pineapple extract food Not available Not available Not available 01/03/2023 56671 74 RxNorm Jane Vasquez r null, [facility] 3 15:02:06 77383 coconut extract food,medi cation Not available Not available Not available 01/03/2023 13351 48 RxNorm Jane Christina garcía [place] - [facility] 3 15:02:13 Medications Name Sig Start [...] Updated DateTime 01/03/2023 152.4 cm 56.1 kg/m2 592073.0 1 g 117 mm[Hg] 80 mm[Hg] Jane Earl [facility] 3 14:57:36 Social History Question [...] Or The Highest Degree You Have Received? 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 [id number] Information not available 01/03/2023 Do You Use [...] (Food, seasonal, environmental ) N Other N Drug/Latex Allergies/Reactions N Blood Transfusion N Breast Cancer N Dermatologic Disorders N Lung Disease N Defects or Inherited Disease N Breast Problem N Gestational Diabetes N Hematologic disorders N Anesthesia Complications N History of STI N Deep Vein Thrombosis N Polycystic ovary syndrome N Anxiety Disorder N Autoimmune disease N Arthritis N Polyps N Infertility N Acid Reflux (GERD) N History of abnormal pap N Cancer N Varicosities N Stroke N Neurologic/Epilepsy N Endometriosis N High Cholesterol N Fibromyalgia N Headaches Y Kidney Disease N Heart Problems N Thyroid Problems N Kidney or Bladder Problems N GI Problems N Eating Disorder [...] SNOMED-CT Code Diagnosis ICD10 Code Diagnosis Note [id number] CL[facility] [place] [address] [address] 01/03/2023 14:13:33 01/03/2023 15:25:17 Venereal disease screening 348346208 Z11.3 Sexually t ransmitted infectious disease 4627718 A64 Gynecologi c examination 57603712 Z01.419 Take Calcium with Vitamin D 1200mg [...] of today's plan if desired. WWEBC - declinedme st pap 2016 - normalpap updated todaySTI [...] Copeland Member ID Guarantor Name 01/03/2023 1 [facility] - DOS ON OR AFTER 20 (MEDICAID REPLACEMENT - HMO) Piper Rabago [id number] Piper Rabago Notes Date Note Type Note [...] age 38 CLARENCE [place] [address], [place], [address], [facility] 01/03/2023 15:25:26 OBGyn Episode Ob Episode Information Episode Created Date Number of Fetuses Patient Bloodtype Patient rh Status Prepregnancy Weight lbs Domestic Partner Domestic Partner Phone Father Name Microcomputer Technician Status 01/04/20 23 1 CLOSED Fetus Data First Name Last Name Admitted to NICU Weight (g) Sex Living Outcome Pediatric Complications Fetus ID Race Codes Race Delivery Type 3742.13 4 F [id number] Primary Chad Calculation Initial Chad Date Initial [...]
[2024-08-01] MEDS: LACTATED RINGERS 1,000 ML 30 ML IV CONT (06:50)
[2024-08-01] MEDS: ACETAMINOPHEN 500 MG TABLET 1000 MG PO (06:51)
[2024-08-01] MEDS: KETOROLAC 15 MG/ML VIAL (*BKC) IV PUSH (06:52)
--- NOTE | 2024-08-01 07:06 | WPDHPUPDATE1 ---
History and Physical Update Update Date/Time: 08/01/24 07:06 History and Physical has been reviewed, including an updated exam of the patient. There are NO changes in the patient's condition. Risks, benefits, and alternatives have been discussed and questions answered. Patient agrees to proceed with procedure.
[2024-08-01 07:08] LABS: Alanine Aminotransferase 25 U/L (6-35); Alkaline Phosphatase 52 U/L (38-126); Amylase 62 U/L (30-110); Aspartate Amino Transferase 24 U/L (14-36); Bilirubin,Total 0.4 mg/dL (0.2-1.3); Lipase 58 U/L (23-300)
--- NOTE | 2024-08-01 07:08 | P.PNAN_ITS ---
Anes - Initial Pre Proc Eval Procedure: Operation Date: 08/01/24 07:30 Proposed Procedures p Laparoscopic Cholecystectomy - Tyrone Alvares MD Date/Time: 08/01/24 07:08 Surgeon: Tyrone Alvares MD Pre Op Diagnosis: chronic cholecystitis with calculus Patient Data Age: 29 Gender: F Height: 1.54 m Weight: 121.4 kg Last Vital Signs Temp 98.2 F 08/01/24 05:58 Pulse 73 08/01/24 05:58 Resp 16 08/01/24 05:58 BP 116/62 08/01/24 05:58 Pulse Ox 100 08/01/24 05:58 Allergies Allergy/AdvReac Type Severity Reaction Status Date / Time amoxicillin Allergy Intermediate Rash Verified 07/30/24 13:39 latex Allergy Unknown Unknown Verified 07/30/24 13:39 Penicillins Allergy Unknown Rash Verified 08/01/24 06:58 coconut Allergy Itching Verified 07/30/24 13:39 pineapple Allergy Hives Verified 07/30/24 13:39 Home Medications ?Medication ?Instructions ?Recorded ?Confirmed ?Type docusate sodium 100 mg capsule 100 mg PO DAILY #90 caps 02/18/23 08/01/24 Rx topiramate 25 mg tablet 25 mg PO BID #60 tabs 04/14/23 08/01/24 Rx methocarbamol 750 mg tablet See Rx Instructions .Route 06/07/24 07/30/24 Rx .COMPLEX #60 tabs albuterol sulfate 90 mcg/actuation 2 puff inhalation Q4H PRN 07/05/24 07/30/24 Rx aerosol inhaler shortness of breath or wheezing #8.5 grams fluticasone propionate 50 2 spray intranasal DAILY #16 grams 07/05/24 08/01/24 Rx mcg/actuation nasal spray,suspension (Flonase Allergy Relief) ibuprofen 800 mg tablet 800 mg PO TID PRN pain #60 tabs 07/05/24 08/01/24 Rx vits 75-iron 28 mg-folic 1 pkg PO DAILY 07/30/24 08/01/24 History acid 800 mcg-omega3 440 mg oral pack (One Daily ) Laboratory Tests 08/01/24 06:48 Total Bilirubin 0.4 mg/dL (0.2-1.3) Direct Bilirubin 0.0 mg/dL (0-0.3) AST 24 U/L (14-36) ALT 25 U/L (6-35) Alkaline Phosphatase 52 U/L (38-126) Total Protein 7.0 g/dL (6.3-8.2) Albumin 4.0 g/dL (3.5-5.1) Amylase 62 U/L (30-110) Lipase 58 U/L (23-300) Patient hx anesthesia problems: none Family hx anesthesia problems: none Results Review: All pre-operative results and documents have been reviewed as part of the pre- operative evaluation. [facility] Past Medical History Medical History Manic bipolar I disorder Migraine Headache Anemia PTSD (post-traumatic stress disorder) Bipolar disorder Anxiety Depression Back pain Arthritis GERD (gastroesophageal reflux disease) Heart murmur Wears hearing aid in both ears Surgical History Surgical History H/O: H/O dilation and curettage Hx of tonsillectomy Family History Family History Father Alcoholism Mother Asthma Hypertension Heart disease Diabetes mellitus Neuropathy Cerebrovascular accident Grandparent Cervical cancer Sibling Depression Anxiety Other No significant family history Social History Social History Smoking packs per day: 0.25 Smoking cigarettes per day: 5.0 Smoking status: Former smoker Tobacco type: cigarettes Second hand tobacco smoke exposure: Yes Smoking end date: 06/06/21 Alcohol intake: current Drinks per week: 2 Substance use: current Substance use type: marijuana Do You Feel Safe in your Home?: Yes Lack of Transportation: No Lack of Food: Never True Current Housing: I Have Housing Concerned About Future Housing: No Difficulty Paying Gas/Electric Bills: No Difficulty Paying for Meds: No Currently Unemployed: YES Education: High School Diploma/GED Difficulty w/ Childcare or Family Care: No Living arrangements: with family Occupation/Education: unemployed Gender identity (if verbalized by the patient): Female Anes - Eval Final PreProcedure Day of Procedure 08/01/24 07:08 Patient weight: morbidly obese Lungs: normal air movement Airway: Mallampati scale class II Neurological: alert and oriented Last oral intake: >/= 8 hours ASA classification: IV Emergent: no Anesthetic plan: proceed Anesthesia type and monitoring: general ETT and standard monitoring Results Review: All pre-operative results and documents have been reviewed as part of the pre- operative evaluation. Morbid obesity, BMI 51, ex smoker quit 2021, marijuana daily including 1 hit this am, PTSD, hx of bipolar disorder and migrane rosales. Informed Consent: The patient's anesthetic plan and its attendant risks and benefits were discussed with the patient/family/POA. Questions were solicited and answers provided to the satisfaction of the patient/family/POA.
[2024-08-01] MEDS: ceFAZolin 3 GM/D5W 100 ML 100 ML IVPB (07:28)
[2024-08-01] MEDS: BUPIVACAINE/EPINEPHRINE 0.5% 50 ML VIAL 30 ML INFILTRATE (08:03)
--- NOTE | 2024-08-01 08:29 | P.OP_ITS ---
Procedure Note - Detailed Date of Procedure 08/01/24 Pre-op Diagnosis chronic cholecystitis with calculus Post-op Diagnosis Same Procedure Performed Laparoscopic cholecystectomy Surgeon Tyrnoe Alvares MD [employer] Keyboard Operator Teresa Eaton [facility] Anesthesia General and Local Indications Patient has persistent, Frequent episodes of right upper quadrant abdominal pain that radiates through to her back. It is often associated with nausea and vomiting. It tends to occur more after eating. She has a family history of gallbladder disease in her sister. She had an ultrasound which showed gallstones. She is taken to surgery now for laparoscopic cholecystectomy. Findings Chronic inflammation, small gallstones, fatty liver, no biliary ductal dilatation. Description of Procedure Patient was taken to surgery and induced into general anesthesia. The abdomen is prepped and draped. Trocars were placed in the usual fashion using [employer] optical trocars and a 5 mm camera. The gallbladder was decompressed with a laparoscopic aspirator. The cholecystotomy was closed with a Vicryl endoloop. The gallbladder was then retracted anterosuperiorly. Dissection was carried out in the cholecystohepatic triangle. The cystic duct and cystic artery were dissected out very clearly. The gallbladder was dissected off the liver over its lower 3rd. Critical view was achieved. The cystic duct and cystic artery were then securely clipped and divided. The gallbladder was then dissected free of its remaining attachments to the liver. In the area of the fundus, the gallbladder was intrahepatic and there were several small entries into the gallbladder and some surface injury to the liver in dissecting the gallbladder out here. There was no significant bleeding or spillage associated with this. Stones seen were all quite small. The gallbladder was then placed in an Endo-Catch bag and retrieved through the 10 11 epigastric trocar site. The epigastric trocar was replaced and we reviewed the right upper quadrant. It was irrigated and suctioned repeatedly. No evidence of stones bleeding or bile leaks were seen. The irrigant was coming back clean. We then evacuated CO2 and removed the trocar sleeves. Skin wounds were closed with subcuticular 4-0 Monocryl skin suture. The wounds were dressed with Exofin surgical adhesive. Patient was awakened and taken to recovery in good condition. Sponge and needle counts were correct x2. Estimated Blood Loss -5 Drains No Packing No Pathology Yes ( Gallbladder) Complications None Condition Stable Disposition PACU [facility] Billing Surgery - Charge Forward: Surgery Billing ( laparoscopic cholecystectomy)
[2024-08-01] MEDS: fentaNYL CITRATE INJ (*CRX) 100 MCG/2 ML VIAL 25 MCG IV PUSH ×4 (08:55→09:06)
[2024-08-01] MEDS: oxyCODONE HCL (*CRX) 5 MG TAB IR PO (09:30)
== END 2024-08-01 10:15 | disposition home or self-care (01) ==
PROVIDERS: PCP Nurse Practitioner; Visit Provider Surgery
PROC: 0FT44ZZ Resection of Gallbladder, Percutaneous Endoscopic Approach (ICD-10-PCS; CPT 47562; principal; 2024-08-01 07:30)
DX: K80.10 Calculus of gallbladder with chronic cholecystitis without obstruction (principal); G89.18 Other acute postprocedural pain; D64.9 Anemia, unspecified; K21.9 Gastro-esophageal reflux disease without esophagitis; F31.9 Bipolar disorder, unspecified; F43.10 Post-traumatic stress disorder, unspecified; F41.9 Anxiety disorder, unspecified; R01.1 Cardiac murmur, unspecified; M19.90 Unspecified osteoarthritis, unspecified site; F12.90 Cannabis use, unspecified, uncomplicated; E66.01 Morbid (severe) obesity due to excess calories; Z68.42 Body mass index [BMI] 45.0-49.9, adult; Z79.51 Long term (current) use of inhaled steroids; Z79.1 Long term (current) use of non-steroidal anti-inflammatories (NSAID); Z97.4 Presence of external hearing-aid; Z98.890 Other specified postprocedural states; Z87.891 Personal history of nicotine dependence; Z80.49 Family history of malignant neoplasm of other genital organs; Z82.49 Family history of ischemic heart disease and other diseases of the circulatory system
CPT/HCPCS: 47562; 36415; 80076; 82150; 83690; 88304; A9270; J0690; J1100; J1171; J1885; J2003; J2250; J2405; J2704; J3010; J7030; J7120